=== PATIENT | female | born 1990 | race Caucasian/White ===

== ENCOUNTER → 2017-04-04 | Outpatient (CLI) | payer OTHER ==
[~2017-04-04] MED LIST: Ativan1 MG SL; BELPTAB PO; Bactrim Ds Tab1 EACH PO; CEPH500 PO; CODACEE120 PO; CYCL10 PO; DULO30 PO; ESCI10 PO; FLUO20 PO; HYDPAM50; IBUP800 PO; Keflex500 MG PO; LAMO25 PO; LORA1 PO; Levaquin500 MG PO; MULVITMINE PO; ONDA4 PO; PENVK500 PO; Percocet 5-3251 EACH PO; SERT25; SUBOXONE 12 MG1 EACH; TRAZ50 PO; Verotin-Gr Cap1 EACH PO
== END ==
LOC: LAB 17:11
DX: Z34.00 Encounter for supervision of normal first pregnancy, unspecified trimester (principal)
CPT/HCPCS: 87081; 87653

== ENCOUNTER 2017-04-12 11:20 | Inpatient (IN) | payer OTHER ==
[~2017-04-12] VITALS: Ht 157.5 cm; Wt 114.0 kg
[~2017-04-12 11:20] MED LIST changes: -IBUP800 PO; -Percocet 5-3251 EACH PO
[2017-04-12 12:13] LABS: BASOPHILS ABSOLUTE AUTO 0.01 K/mm3 (0.00-0.23); BASOPHILS PERCENT AUTO 0 % (0-2); EOSINOPHILS ABSOLUTE AUTO 0.07 K/mm3 (0.00-0.68); EOSINOPHILS PERCENT AUTO 1 % (0-6); Hematocrit 40.4 % (33.0-51.0); Hemoglobin 13.9 g/dL (11.5-16.0); IMMATURE GRAN ABSOLUTE AUTO 0.04 K/mm3 (0.00-0.10); IMMATURE GRAN PERCENT AUTO 0 % (0-1); LYMPHOCYTES ABSOLUTE AUTO 2.57 K/mm3 (0.84-5.20); LYMPHOCYTES PERCENT AUTO 26 % (21-46); MONOCYTES PERCENT AUTO 7 % (4-13); Mean Corpuscular HGB 32.6 pg (26.0-34.0); Mean Corpuscular HGB Conc 34.4 g/dL (31.5-36.5); Mean Corpuscular Volume 95 fL (80-100); Mean Platelet Volume 10.1 fL (9.1-12.4); NEUTROPHILS ABSOLUTE AUTO 6.54 K/mm3 (1.96-9.15); NEUTROPHILS PERCENT AUTO 66 % (41-73); Platelet Count 264 K/mm3 (150-400); RDW Coefficient Variation 12.7 % (11.7-14.2); RDW Standard Deviation 43.5 fL (35.1-46.3); Red Blood Cell Count 4.26 M/mm3 (3.80-5.20); White Blood Cell Count 9.93 K/mm3 (4.00-11.30)
[2017-04-13 05:53] LABS: Hematocrit 34.8 % (33.0-51.0); Hemoglobin 11.7 g/dL (11.5-16.0); Mean Corpuscular HGB 32.5 pg (26.0-34.0); Mean Corpuscular HGB Conc 33.6 g/dL (31.5-36.5); Mean Corpuscular Volume 97 fL (80-100); Mean Platelet Volume 9.9 fL (9.1-12.4); Platelet Count 218 K/mm3 (150-400); RDW Coefficient Variation 12.8 % (11.7-14.2); RDW Standard Deviation 45.1 fL (35.1-46.3); White Blood Cell Count 11.16 K/mm3 (4.00-11.30)
[2017-04-15] MEDS ORDERED: IBUP800 PO (13:34)
[2017-04-15] MEDS ORDERED: Percocet 5-3251 EACH PO (13:35)
== END 2017-04-15 18:54 | disposition home or self-care (01) | DRG 765 ==
LOC: OBS 11:20 → BC 11:24
PROVIDERS: Obstetrics & Gynecology
PROC: 10D00Z1 Extraction of Products of Conception, Low, Open Approach (ICD-10-PCS; principal; 2017-04-12)
PROC: 3E0234Z Introduction of Serum, Toxoid and Vaccine into Muscle, Percutaneous Approach (ICD-10-PCS; 2017-04-14)
DX: O34.211 Maternal care for low transverse scar from previous cesarean delivery (principal); Z68.42 Body mass index [BMI] 45.0-49.9, adult; E66.01 Morbid (severe) obesity due to excess calories; O99.214 Obesity complicating childbirth; O99.344 Other mental disorders complicating childbirth; F41.9 Anxiety disorder, unspecified; Z23 Encounter for immunization; Z37.0 Single live birth; Z3A.37 37 weeks gestation of pregnancy; Z88.0 Allergy status to penicillin; Z79.899 Other long term (current) drug therapy
CPT/HCPCS: 36415; 81003; 85025; 85027; 86850; 86900; 86901; J0690; J1885; J2590; J2765; J3010; J7120; Q2038

== ENCOUNTER → 2017-06-27 | Outpatient (CLI) | payer OTHER ==
[~2017-06-27] MED LIST changes: +IBUP800 PO; +Percocet 5-3251 EACH PO
== END ==
LOC: LAB SRC 11:39 → LAB SHORT 11:39
DX: F12.20 Cannabis dependence, uncomplicated (principal)
CPT/HCPCS: G0480

== ENCOUNTER 2018-04-20 20:48 | Emergency (ER) | payer OTHER ==
[~2018-04-20] VITALS: Ht 157.5 cm; Wt 95.2 kg
[2018-04-20] MEDS ORDERED: SERT50 PO (21:16)
== END 2018-04-21 00:06 | disposition left against medical advice (07) ==
LOC: ER 20:48
DX: Z53.21 Procedure and treatment not carried out due to patient leaving prior to being seen by health care provider (principal)

== ENCOUNTER 2020-06-28 12:37 | Emergency (ER) | payer OTHER ==
[~2020-06-28] VITALS: Ht 157.5 cm; Wt 99.8 kg
[~2020-06-28 12:37] MED LIST changes: +SERT50 PO
[2020-06-28 13:43] LABS: BASOPHILS ABSOLUTE AUTO 0.03 K/mm3 (0.00-0.23); BASOPHILS PERCENT AUTO 0 % (0-2); EOSINOPHILS ABSOLUTE AUTO 0.01 K/mm3 (0.00-0.68); EOSINOPHILS PERCENT AUTO 0 % (0-6); Hematocrit 39.8 % (33.0-51.0); Hemoglobin 12.9 g/dL (11.5-16.0); IMMATURE GRAN ABSOLUTE AUTO 0.03 K/mm3 (0.00-0.10); IMMATURE GRAN PERCENT AUTO 0 % (0-1); LYMPHOCYTES ABSOLUTE AUTO 0.65 K/mm3 (0.84-5.20); LYMPHOCYTES PERCENT AUTO 8 % (21-46); MONOCYTES ABSOLUTE AUTO 0.41 K/mm3 (0.16-1.47); MONOCYTES PERCENT AUTO 5 % (4-13); Mean Corpuscular HGB 29.7 pg (26.0-34.0); Mean Corpuscular HGB Conc 32.4 g/dL (31.5-36.5); Mean Corpuscular Volume 92 fL (80-100); Mean Platelet Volume 9.3 fL (9.1-12.4); NEUTROPHILS ABSOLUTE AUTO 6.59 K/mm3 (1.96-9.15); NEUTROPHILS PERCENT AUTO 85 % (41-73); Platelet Count 247 K/mm3 (150-400); RDW Coefficient Variation 13.9 % (11.7-14.2); RDW Standard Deviation 46.9 fL (35.1-46.3); Red Blood Cell Count 4.35 M/mm3 (3.80-5.20); White Blood Cell Count 7.72 K/mm3 (4.00-11.30)
[2020-06-28 13:56] LABS: Alanine Aminotransfer (ALT/SGP 62 U/L (12-78); Albumin, Blood 3.7 g/dL (3.4-5.0); Albumin/Globulin Ratio 0.9 (0.8-1.8); Alk Phos 124 U/L (50-136); Anion Gap 6 mmol/L (6-16); Aspartate Aminotrans (AST/SGOT 66 U/L (12-37); Bilirubin, Total 0.9 mg/dL (0.1-1.0); Blood Urea Nitrogen 6 mg/dL (8-24); Bun/Creatinine Ratio 10.5 (12.0-20.0); CO2, Blood 25 mmol/L (21-32); Calcium, Blood 8.5 mg/dL (8.5-10.1); Chloride, Blood 105 mmol/L (98-108); Creatinine, Blood 0.57 mg/dL (0.40-1.00); Globulin, Blood 4.2 g/dL (2.2-4.0); Glomerular Filtration Rate >60 (60-); Glucose, Blood 122 mg/dL (70-99); Potassium, Blood 3.4 mmol/L (3.5-5.5); Sodium, Blood 136 mmol/L (136-145); Total Protein, Blood 7.9 g/dL (6.4-8.2)
[2020-06-28] MEDS ORDERED: GABA100 PO ×2 (15:33→15:34)
[2020-06-28] MEDS ORDERED: GABA300 PO (15:33)
[2020-06-28] MEDS ORDERED: CEPH500 PO ×2 (17:28→17:30)
== END 2020-06-28 17:30 | disposition home or self-care (01) ==
LOC: ER 12:37
PROVIDERS: Physician Assistant
DX: L03.114 Cellulitis of left upper limb (principal); I10 Essential (primary) hypertension; F17.210 Nicotine dependence, cigarettes, uncomplicated; Z88.0 Allergy status to penicillin; Z79.899 Other long term (current) drug therapy
CPT/HCPCS: 36415; 73130; 80053; 83605; 85025; 96374; 96375; 99283-25; J0690; J1170; J2405

== ENCOUNTER 2020-07-03 15:34 | Inpatient (IN) | payer OTHER ==
[~2020-07-03] VITALS: Ht 157.5 cm; Wt 121.0 kg
[~2020-07-03 15:34] MED LIST changes: +GABA100 PO; +GABA300 PO
[2020-07-03 16:24] LABS: BASOPHILS ABSOLUTE AUTO 0.05 K/mm3 (0.00-0.23); BASOPHILS PERCENT AUTO 1 % (0-2); EOSINOPHILS ABSOLUTE AUTO 0.21 K/mm3 (0.00-0.68); EOSINOPHILS PERCENT AUTO 2 % (0-6); Hematocrit 37.1 % (33.0-51.0); Hemoglobin 12.1 g/dL (11.5-16.0); IMMATURE GRAN ABSOLUTE AUTO 0.15 K/mm3 (0.00-0.10); IMMATURE GRAN PERCENT AUTO 1 % (0-1); LYMPHOCYTES ABSOLUTE AUTO 2.95 K/mm3 (0.84-5.20); LYMPHOCYTES PERCENT AUTO 27 % (21-46); MONOCYTES ABSOLUTE AUTO 0.84 K/mm3 (0.16-1.47); MONOCYTES PERCENT AUTO 8 % (4-13); Mean Corpuscular HGB 29.4 pg (26.0-34.0); Mean Corpuscular HGB Conc 32.6 g/dL (31.5-36.5); Mean Corpuscular Volume 90 fL (80-100); NEUTROPHILS ABSOLUTE AUTO 6.69 K/mm3 (1.96-9.15); NEUTROPHILS PERCENT AUTO 61 % (41-73); Platelet Count 311 K/mm3 (150-400); RDW Coefficient Variation 14.1 % (11.7-14.2); RDW Standard Deviation 46.9 fL (35.1-46.3); Red Blood Cell Count 4.12 M/mm3 (3.80-5.20); White Blood Cell Count 10.89 K/mm3 (4.00-11.30)
[2020-07-03 16:44] LABS: Alanine Aminotransfer (ALT/SGP 40 U/L (12-78); Albumin, Blood 3.1 g/dL (3.4-5.0); Albumin/Globulin Ratio 0.7 (0.8-1.8); Alk Phos 129 U/L (50-136); Anion Gap 3 mmol/L (6-16); Aspartate Aminotrans (AST/SGOT 39 U/L (12-37); Bilirubin, Total 0.4 mg/dL (0.1-1.0); Blood Urea Nitrogen 8 mg/dL (8-24); Bun/Creatinine Ratio 15.7 (12.0-20.0); CO2, Blood 28 mmol/L (21-32); Calcium, Blood 8.5 mg/dL (8.5-10.1); Chloride, Blood 106 mmol/L (98-108); Creatinine, Blood 0.51 mg/dL (0.40-1.00); Globulin, Blood 4.7 g/dL (2.2-4.0); Glomerular Filtration Rate >60 (60-); Glucose, Blood 101 mg/dL (70-99); Potassium, Blood 3.9 mmol/L (3.5-5.5); Sodium, Blood 137 mmol/L (136-145); Total Protein, Blood 7.8 g/dL (6.4-8.2)
--- NOTE | 2020-07-03 19:24 | NUR ---
PT ARRIVED TO PCU 16 VIA BED AND ABLE TO STAND AND TRANSFER. ON 2L O2 VIA NASAL CANNULA SATING AT 95%. CONTINUOUS PULSE OX IN PLACE. SOB WITH STAND BY ASSIST TO BEDSIDE COMMODE. URINE CLEAR AND YELLOW. TELE SHOWING SINUS. DENIES CHEST PAIN/PRESSURE. COMPLAINS OF ABDOMINAL PAIN TO LEFT SIDE. MEDICATED PRIOR TO ARRIVAL PER EMAR WITH SOME RELIEF. LEFT HAND WOUND DRESSED, UNABLE TO VISUALIZE WOUND. VITAL SIGNS STABLE. CT OF CHEST COMPLETED. NORMAL SALINE AT 100 ML/HR AND VANCOMYCIN INFUSING. RIGHT UPPER ARM POWER GLIDE. LEFT AC IV. CALL LIGHT IN REACH. REPORTED OFF TO ONCOMING RN.
[2020-07-03] MEDS ORDERED: HYDHCL25 PO (19:50)
[2020-07-03] MEDS ORDERED: ZOLOFT100 M5 PO (19:51)
[2020-07-03] MEDS ORDERED: GABA100 PO (19:53)
[2020-07-03] MEDS ORDERED: NEURONTIN300 MG PO (19:54)
[2020-07-03] MEDS ORDERED: Phenergan25 M1 PO (19:55)
[2020-07-03] MEDS ORDERED: Hydroxyzine HCl50 MG PO (19:55)
[2020-07-03] MEDS ORDERED: TRAZ50 PO (19:56)
[2020-07-03] MEDS ORDERED: CLON.1 PO (19:56)
[2020-07-03] MEDS ORDERED: GABA300 PO ×2 (20:30→20:31)
--- NOTE | 2020-07-03 23:29 | NUR ---
30 YO ADMITTED FOR SEPTIC EMBOLI, PNEUMONIA, INFECTED HAND WOUND. A&O X4. ABLE TO MAKE NEEDS KNOWN. SATTING 90-95% ON 1-2l O2 VIA NC. BECOMES SOB WHEN STANDING AND AMBULATING TO BSC, SBA. CONNECTED TO TELE, SINUS 80'S - 100'S. HR INCREASES UPON EXERTION. PT REPORTING PAIN TO LEFT FLANK, AND LEFT ABD. RATING 7/10, TREATED WITH PRN PAIN MEDICATION AND PT ABLE TO SLEEP. IV IN LEFT AC. POWERGLIDE TO RIGHT ARM, INFUSING WITH NORMAL SALINE. WOUND ON LEFT HAND WITH MODERATE YELLOW DRAINAGE, CLEANSED WITH WOUND SPRAY, COVERED WITH NON-ADHERENT DRESSING AND WRAPPED WITH KERLEX. REDNESS AND INDURATION EXTENDING FROM LEFT HAND TO LEFT ELBOW, WARM TO TOUCH. AREA WAS MARKED WITH SKIN MARKER AND PHOTOS TAKEN FOR PT CHART. REDNESS NOTED TO PT'S BILAT INNER THIGHS. PT REPORTS MILD ITCHING AND STATES SHE NOTICED TODAY IN THE ER. AREA IS CLEANSED WITH WIPES, LOTION APPLIED. PHOTOS TAKEN FOR PT CHART, AREA MARKED WITH SKIN MARKER. PT SLEEPING AT 23:00, CALL LIGHT WITHIN REACH. WILL CONTINUE TO MONITOR.
[2020-07-04 04:05] LABS: BASOPHILS ABSOLUTE AUTO 0.04 K/mm3 (0.00-0.23); BASOPHILS PERCENT AUTO 0 % (0-2); EOSINOPHILS ABSOLUTE AUTO 0.17 K/mm3 (0.00-0.68); EOSINOPHILS PERCENT AUTO 2 % (0-6); Hematocrit 33.6 % (33.0-51.0); Hemoglobin 10.8 g/dL (11.5-16.0); IMMATURE GRAN ABSOLUTE AUTO 0.12 K/mm3 (0.00-0.10); IMMATURE GRAN PERCENT AUTO 1 % (0-1); LYMPHOCYTES ABSOLUTE AUTO 3.03 K/mm3 (0.84-5.20); LYMPHOCYTES PERCENT AUTO 30 % (21-46); MONOCYTES ABSOLUTE AUTO 0.69 K/mm3 (0.16-1.47); MONOCYTES PERCENT AUTO 7 % (4-13); Mean Corpuscular HGB Conc 32.1 g/dL (31.5-36.5); Mean Corpuscular Volume 90 fL (80-100); NEUTROPHILS ABSOLUTE AUTO 5.96 K/mm3 (1.96-9.15); NEUTROPHILS PERCENT AUTO 60 % (41-73); Platelet Count 303 K/mm3 (150-400); RDW Coefficient Variation 14.2 % (11.7-14.2); RDW Standard Deviation 46.2 fL (35.1-46.3); Red Blood Cell Count 3.73 M/mm3 (3.80-5.20); White Blood Cell Count 10.01 K/mm3 (4.00-11.30)
[2020-07-04 04:27] LABS: Alanine Aminotransfer (ALT/SGP 34 U/L (12-78); Albumin, Blood 2.8 g/dL (3.4-5.0); Albumin/Globulin Ratio 0.7 (0.8-1.8); Alk Phos 106 U/L (50-136); Anion Gap 3 mmol/L (6-16); Aspartate Aminotrans (AST/SGOT 32 U/L (12-37); Bilirubin, Total 0.5 mg/dL (0.1-1.0); Blood Urea Nitrogen 6 mg/dL (8-24); CO2, Blood 27 mmol/L (21-32); Calcium, Blood 7.9 mg/dL (8.5-10.1); Chloride, Blood 107 mmol/L (98-108); Creatinine, Blood 0.55 mg/dL (0.40-1.00); Globulin, Blood 4.2 g/dL (2.2-4.0); Glomerular Filtration Rate >60 (60-); Glucose, Blood 104 mg/dL (70-99); Potassium, Blood 3.9 mmol/L (3.5-5.5); Sodium, Blood 137 mmol/L (136-145)
--- NOTE | 2020-07-04 06:16 | NUR ---
SHIFT SUMMARY PT EXHIBITED SYMPTOMS OF OPIOID WITHDRAWAL- NAUSEA, FLUSHED SKIN, ITCHING SKIN, C/O FEELING FEVERISH. VSS DURING SHIFT. PT DESATS TO 86% O2 WHEN SHE REMOVED HER NC OR FELL ASLEEP AND THE CANNULA FELL OUT. ON ROOM AIR 1.5 L, SHE REMAINS AT >94 % O2. PT STATED, "I KNOW I'M WITHDRAWING..." PT C/O LEFT SIDE ABD AND FLANK PAIN, AT TIMES RESTLESS - WHIMPERING, MOVING FREQUENTLY IN BED. STATES THE PAIN BEGAN AFTER HER FALL, BUT STATES IT IS NOT RESIDUAL FROM THE FALL. PT REPORTS 2-3 DAYS AGO, SHE "FELL THROUGH THE TOP STEP" AT HER BOYFRIEND'S HOUSE. AT TIMES, PT WOULD REQUEST PAIN MEDICATION. WHEN RN WOULD RETURN TO ROOM WITH REQUESTED PAIN MEDICATION, PT WOULD BE SLEEPING. PT PAIN TREATED WITH PRESCRIBED DILUADID IV AND PO, SEE MAR. WOUND CARE COMPLETED: LEFT HAND CLEANSED WITH WOUND SPRAY, APPLIED NON-ADHERENT DRESSING AND WRAPPED WITH KERLEX PER WOUNDCARE INSTRUCTIONS. ADMISSION COMPLETE. FLUIDS INFUSING PER ORDER, POWERGLIDE IN GABBI. SBA FOR ASSISTANCE TO COMMODE. ATTENDS IN PLACE FOR INCONTINENCE. TELE READS SINUS IN THE 'S. WILL CONTINUE TO MONITOR.
--- NOTE | 2020-07-04 14:05 | NUR ---
Echocardiogram completed.
[2020-07-04 18:58] LABS: Vancomycin, Trough 8.9 ug/mL (5.0-10.0)
--- NOTE | 2020-07-04 19:24 | NUR ---
SHIFT SUMMARY: PATIENT CONTINUES TO SPO2 >92% ON RA, IS A/O X 4, IS SLIGHTLY ANXIOUS, AND WAS GIVEN ORAL ANTIANXIETY MEDS WHICH DECREASED ANXIETY ALONG WITH RELAXATION, AND BREATHING TECHNIQUES. PAIN HAS BEEN ISOLATED TO HER LUQ PAIN. ORAL DILAUDED MEDICATION PER EMAR MAINTAINED PATIENTS PAIN LEVELS. PATIENT DENIES ANY CHEST PAIN, SINUS RHYTHM VIA MONITOR. PATIENT IS GAINING SOME STRENGTH WITH AMBULATION SHE IS STEADIER WHILE AMBULATING TO BSC. USES CALL LIGHT APPROPRIATELY, REPORT GIVEN TO ONCOMING HOOP EXPANDER RN KEISHA HANKINS.
[2020-07-05 04:36] LABS: Hematocrit 32.8 % (33.0-51.0); Hemoglobin 10.8 g/dL (11.5-16.0); Mean Corpuscular HGB 29.1 pg (26.0-34.0); Mean Corpuscular HGB Conc 32.9 g/dL (31.5-36.5); Mean Corpuscular Volume 88 fL (80-100); Mean Platelet Volume 9.3 fL (9.1-12.4); Platelet Count 344 K/mm3 (150-400); RDW Coefficient Variation 13.8 % (11.7-14.2); RDW Standard Deviation 44.9 fL (35.1-46.3); Red Blood Cell Count 3.71 M/mm3 (3.80-5.20); White Blood Cell Count 10.46 K/mm3 (4.00-11.30)
[2020-07-05 04:47] LABS: Alanine Aminotransfer (ALT/SGP 28 U/L (12-78); Albumin, Blood 2.7 g/dL (3.4-5.0); Albumin/Globulin Ratio 0.6 (0.8-1.8); Alk Phos 101 U/L (50-136); Anion Gap 5 mmol/L (6-16); Aspartate Aminotrans (AST/SGOT 24 U/L (12-37); Bilirubin, Total 0.5 mg/dL (0.1-1.0); Blood Urea Nitrogen 6 mg/dL (8-24); CO2, Blood 24 mmol/L (21-32); Calcium, Blood 7.9 mg/dL (8.5-10.1); Chloride, Blood 109 mmol/L (98-108); Creatinine, Blood 0.55 mg/dL (0.40-1.00); Globulin, Blood 4.5 g/dL (2.2-4.0); Glomerular Filtration Rate >60 (60-); Glucose, Blood 108 mg/dL (70-99); Magnesium, Blood 2.2 mg/dL (1.6-2.4); Potassium, Blood 3.7 mmol/L (3.5-5.5); Sodium, Blood 138 mmol/L (136-145); Total Protein, Blood 7.2 g/dL (6.4-8.2)
--- NOTE | 2020-07-05 06:32 | NUR ---
PATIENT REPORTS HER PAIN BETTER CONTROLLED WITH IV DILAUDID. VSS. SB ON TELE AT TIMES; SR MOST OF NIGHT. VSS. NO OTHER ACUTE CHANGES.
--- NOTE | 2020-07-05 18:35 | NUR ---
SHIFT SUMMARY: PT MAINTAINED A&OX4 T/OUT SHIFT, MAINTAINING O2 SATS >93% ON RA, SR ON MONITOR. EARLY THIS MORNING PT STATING SHE WANTS TO GO HOME, SAYS "I MISS MY SON, I'VE BEEN HERE SINCE SUNDAY AND I'M JUST OVER IT". PT ENCOURAGED TO WAIT FOR EVAL BY PROVIDER, PT REMINDED OF RISK OF LEAVING AMA, EDUCATION PROVIDED RE: CURRENT ILLNESS AND NEED TO BE IN HOSPITAL FOR TREATMENT, PT V/U AND AGREES TO WAIT FOR PROVIDER, EVENTUALLY AGREES TO STAY IN HOSPITAL. PT MEDICATED OFTEN WITH PRN MEDICATIONS FOR PAIN AND ANXIETY. PT AMBULATES FREQUENTLY TO RESTROOM W/OUT DIFFICULTY, USING CALL LIGHT APPROPRIATELY TO NOTIFY STAFF. ULTRASOUND AT BEDSIDE FOR IMAGING OF L HAND. L HAND WOUND CULTURE OBTAINED AND SENT TO LAB. PT IS AWARE OF NEED FOR SPUTUM SAMPLE, DENIES PRODUCTIVE COUGH AT THIS TIME. WILL CONTINUE TO MONITOR AND TREAT ACCORDINGLY UNTIL CHANGE OF SHIFT.
[2020-07-05 20:09] LABS: Vancomycin, Trough 14.7 ug/mL (5.0-10.0)
--- NOTE | 2020-07-06 00:22 | NUR ---
PATIENT ALERT AND ORIENTED X4. SBA TO THE BATHROOM. WOUND ON LEFT HAND CLEANED AND NON-ADHESIVE DRESSING PLACED OVER WOUND. PATIENT REPORTING 6/10 PAIN IN LEFT HAND AND LUQ, MEDICATED PER EMAR. 02 SATS >95% ON RA. VSS, NO ACUTE CHANGES. CALL LIGHT IN REACH. REPORT GIVEN TO ROSA HANKINS WHO ASSUMED CARE OF PATIENT AT APPROX 2300.
--- NOTE | 2020-07-06 00:52 | NUR ---
ASSUMED CARE AT 2300 FROM [facility]. REPORT RECEIVED AND PATIENT SLEEPING COMFORTABLY IN BED. CALL LIGHT WITHIN REACH. ABX ADMINISTERED VIA IV. WILL CONTINUE TO MONITOR PATIENT.
--- NOTE | 2020-07-06 04:13 | NUR ---
SHIFT SUMMARY NO ACUTE CHANGES OVERNIGHT. PT STS SHE SLEPT WELL TONIGHT. FEELING WELL RESTED COMPARED A NIGHT AGO. SHE REPORTS PAIN BUT IT IS WELL-TOLERATED. PAIN MANAGED WITH 2MG DILAUDID. SHE ALSO MENTIONED THAT HER PAIN IS BETTER THAN TODAY. SHE ALSO HAD SOME SNACKS THIS MORNING AT 0130. TOLERATED IT WELL. DENIES NAUSEA AND VOMITING. VOIDING ADEQUATELY WITHOUT ANY DIFFICULTY/ISSUES. AMBULATING WITH 1 MINIMAL SBA. VSS. ABX ADMINISTERED. CALL LIGHT WITHIN REACH. WILL CONTINUE TO MONTIOR PATIENT AND WILL PROVID REPORT TO ONCOMING NURSE.
[2020-07-06 10:32] LABS: BASOPHILS ABSOLUTE AUTO 0.06 K/mm3 (0.00-0.23); BASOPHILS PERCENT AUTO 1 % (0-2); EOSINOPHILS ABSOLUTE AUTO 0.19 K/mm3 (0.00-0.68); EOSINOPHILS PERCENT AUTO 2 % (0-6); Hematocrit 38.3 % (33.0-51.0); Hemoglobin 12.2 g/dL (11.5-16.0); IMMATURE GRAN ABSOLUTE AUTO 0.43 K/mm3 (0.00-0.10); IMMATURE GRAN PERCENT AUTO 4 % (0-1); LYMPHOCYTES ABSOLUTE AUTO 2.58 K/mm3 (0.84-5.20); LYMPHOCYTES PERCENT AUTO 25 % (21-46); MONOCYTES ABSOLUTE AUTO 0.86 K/mm3 (0.16-1.47); MONOCYTES PERCENT AUTO 8 % (4-13); Mean Corpuscular HGB 28.5 pg (26.0-34.0); Mean Corpuscular HGB Conc 31.9 g/dL (31.5-36.5); Mean Corpuscular Volume 90 fL (80-100); Mean Platelet Volume 9.1 fL (9.1-12.4); NEUTROPHILS ABSOLUTE AUTO 6.14 K/mm3 (1.96-9.15); NEUTROPHILS PERCENT AUTO 60 % (41-73); Platelet Count 416 K/mm3 (150-400); RDW Coefficient Variation 14.3 % (11.7-14.2); RDW Standard Deviation 46.3 fL (35.1-46.3); Red Blood Cell Count 4.28 M/mm3 (3.80-5.20); White Blood Cell Count 10.26 K/mm3 (4.00-11.30)
[2020-07-06 10:47] LABS: Alanine Aminotransfer (ALT/SGP 32 U/L (12-78); Albumin/Globulin Ratio 0.6 (0.8-1.8); Alk Phos 121 U/L (50-136); Anion Gap 5 mmol/L (6-16); Aspartate Aminotrans (AST/SGOT 30 U/L (12-37); Bilirubin, Total 0.4 mg/dL (0.1-1.0); Blood Urea Nitrogen 5 mg/dL (8-24); Bun/Creatinine Ratio 8.6 (12.0-20.0); CO2, Blood 25 mmol/L (21-32); Calcium, Blood 8.5 mg/dL (8.5-10.1); Chloride, Blood 109 mmol/L (98-108); Creatinine, Blood 0.58 mg/dL (0.40-1.00); Globulin, Blood 5.3 g/dL (2.2-4.0); Glomerular Filtration Rate >60 (60-); Glucose, Blood 94 mg/dL (70-99); Potassium, Blood 3.9 mmol/L (3.5-5.5); Sodium, Blood 139 mmol/L (136-145); Total Protein, Blood 8.3 g/dL (6.4-8.2)
[2020-07-06 10:49] LABS: SARS-Cov-2 (COVID-19) PCR, MMC NEGATIVE (NEGATIVE)
--- NOTE | 2020-07-06 12:00 | NUR ---
AM NOTE PT ALERT AND ORIENTED X 4. UPON ENTERING ROOM PT WAS EXPERIENCING ANXIETY AND STATED SHE WANTED TO GO HOME. PT VOICED CONCERNS ABOUT SON AND DX. SHE IS OPEN ABOUT IV DRUG USE AND HAS BEEN EDUCATED ACCORDINGLY. THIS STUDENT TREATED ANXIETY PER EMAR AND PT APPEARED MORE RELAXED. VS AT 0954 BP 141/89, HR 96, RR 16, SP02 96 RA. PT HAS COMPLAINED OF PAIN AND BEEN TREATED PER EMAR. PT IS SBA TO BATHROOM BUT AMBULATES ON OWN. WILL CONTINUE TO MONITOR T/O SHIFT. CALL LIGHT IN REACH, BED IN LOW, BED ALARM ON.
--- NOTE | 2020-07-06 18:34 | NUR ---
SHIFT SUMMARY PT ALERT AND ORIENTED X 4. SHE IS PLEASANT AND COOPERATIVE W/ CARE. SHE DISPLAYED ANXIETY DURING SHIFT BUT ONCE TREATED PER EMAR APPEARED MORE RELAXED. VS AT 1659 ARE FOLLOWS; BP 131/85, HR 103, RR 12, SP02 96 ON RA. PT COMPLAINED OF LEFT SIDE PAIN RANGING FROM 5-9 T/O SHIFT; PAIN WAS TREATED PER EMAR. LEFT PERIPH IV IS PATENT AND INFUSING ANTIBIOTICS PER EMAR. PT REPORTED WOUND ON LEFT HAND IS IMPROVING. PT DENIED CHEST PAIN. NAUSEA/VOMITTING T/O SHIFT. NO ACUTE CHANGES NOTED. WILL CONTINUE TO MONITOR FOR REMAINDER OF SHIFT. PT NOW SHOWERING SBA.
--- NOTE | 2020-07-06 18:48 | NUR ---
THIS RN HAS REVIEWED THE EPIDEMIOLOGY INVESTIGATOR DOCUMENTATION AND AM IN AGREEMENT. NO OTHER ACUTE CHANGES NOTED. PT HAS BEEN PAINFUL T/O SHIFT, REQUESTING PAIN MEDICATIONS. EPISODE OF ANXIETY THIS AM, MEDICATED PER EMAR, PT SLEPT AFTER ADMINISTRATION OF MEDICATIONS. VSS. WILL CONTINUE TO MONTIOR UNTIL REPORT GIVEN TO ONCOMING RN.
[2020-07-06 20:20] LABS: Vancomycin, Trough 13.4 ug/mL (5.0-10.0)
--- NOTE | 2020-07-07 01:32 | NUR ---
CARE ASSUMPTION PT IS AO X4. PT IS TEARFUL, ANXIOUS, COOPERATIVE, AND CALM. PT RECEIVED MEDICATION PER EMAR FOR ANXIETY, AND THIS PROVIED HER WITH RELIEF. PT VSS. SPO2 >90% ON RA. TELE SR 70-80S. PT HAD NEW DRESSING APPLIED TO LEFT HAND WOUND AFTER. PT REPORTS PAIN IN HER LEFT HAND. PT RECEIVED PAIN MED PER EMAR AND STATES THAT THIS PROVIED RELIEF. PT AMBULATES A STAND BY ASSIST TO THE BATHROOM. CALL LIGHT WITHIN IN REACH. WILL CONTINUE TO MONITOR AND PROVIDE CARE.
[2020-07-07 04:21] LABS: BASOPHILS ABSOLUTE AUTO 0.04 K/mm3 (0.00-0.23); BASOPHILS PERCENT AUTO 0 % (0-2); EOSINOPHILS ABSOLUTE AUTO 0.29 K/mm3 (0.00-0.68); EOSINOPHILS PERCENT AUTO 2 % (0-6); Hematocrit 34.2 % (33.0-51.0); Hemoglobin 11.1 g/dL (11.5-16.0); IMMATURE GRAN ABSOLUTE AUTO 0.32 K/mm3 (0.00-0.10); IMMATURE GRAN PERCENT AUTO 3 % (0-1); LYMPHOCYTES ABSOLUTE AUTO 3.76 K/mm3 (0.84-5.20); LYMPHOCYTES PERCENT AUTO 31 % (21-46); MONOCYTES ABSOLUTE AUTO 0.86 K/mm3 (0.16-1.47); MONOCYTES PERCENT AUTO 7 % (4-13); Mean Corpuscular HGB 28.5 pg (26.0-34.0); Mean Corpuscular HGB Conc 32.5 g/dL (31.5-36.5); Mean Corpuscular Volume 88 fL (80-100); Mean Platelet Volume 8.9 fL (9.1-12.4); NEUTROPHILS ABSOLUTE AUTO 6.75 K/mm3 (1.96-9.15); NEUTROPHILS PERCENT AUTO 56 % (41-73); Platelet Count 380 K/mm3 (150-400); RDW Coefficient Variation 14.2 % (11.7-14.2); RDW Standard Deviation 45.7 fL (35.1-46.3); Red Blood Cell Count 3.89 M/mm3 (3.80-5.20); White Blood Cell Count 12.02 K/mm3 (4.00-11.30)
[2020-07-07 04:42] LABS: Alanine Aminotransfer (ALT/SGP 33 U/L (12-78); Albumin, Blood 2.7 g/dL (3.4-5.0); Albumin/Globulin Ratio 0.6 (0.8-1.8); Alk Phos 107 U/L (50-136); Anion Gap 4 mmol/L (6-16); Aspartate Aminotrans (AST/SGOT 27 U/L (12-37); Bilirubin, Total 0.4 mg/dL (0.1-1.0); Blood Urea Nitrogen 5 mg/dL (8-24); Bun/Creatinine Ratio 9.2 (12.0-20.0); CO2, Blood 25 mmol/L (21-32); Calcium, Blood 8.3 mg/dL (8.5-10.1); Chloride, Blood 108 mmol/L (98-108); Creatinine, Blood 0.55 mg/dL (0.40-1.00); Globulin, Blood 4.5 g/dL (2.2-4.0); Glomerular Filtration Rate >60 (60-); Glucose, Blood 116 mg/dL (70-99); Potassium, Blood 3.6 mmol/L (3.5-5.5); Sodium, Blood 137 mmol/L (136-145); Total Protein, Blood 7.2 g/dL (6.4-8.2)
--- NOTE | 2020-07-07 06:13 | NUR ---
SHIFT SUMMARY PT AO X4. PT IS TEARFUL, ANXIOUS, CALM, AND COOPERATIVE. VSS. SPO2 >90% ON RA. TELE SR 70-80S. PT COMPLAINED OF LEFT FLANK, WRIST, AND BACK THROUGHOUT THIS STUDENT NURSE SHIFT. PT RATED PAIN RANGING FROM 3-9. PT RECEIVED PAIN MED PER ORDER FROM EMAR. CALL LIGHT WITHIN REACH. NO ACUTE CHANGES THIS SHIFT. WILL CONTINUE TO MONITOR AND PROVIDE CARE UNTIL HAND OFF WITH DAY SHIFT.
[2020-07-07 08:11] LABS: HIV SCREEN 4TH GENERATION WRFX Non Reactive (Non Reactive)
--- NOTE | 2020-07-07 11:44 | NUR ---
AM NOTE \ PT ALERT AND ORIENTED X4. UPON ENTRY TO ROOM PT IN TEARS AND STATED SHE HAS ANXIETY. SHE REPORTED PAIN 07/22. PT HAD JUST RECIEVED ORAL MED PER EMAR. THIS STUDENT TREATED ANXIETY PER ORDERS AND CONTINUED TO MONITOR PAIN. VSS. ANTIBIOTICS INFUSING VIA LEFT PERIPH IV. LUNG SOUNDS CLEAR. PT DENIED CHEST PAIN/PRESSURE. PT IS SBA AND STEADY ON FEET. WILL CONTINUE TO MONITOR T/O SHIFT. CALL LIGHT IN REACH, BED IN LOW.
--- NOTE | 2020-07-07 14:44 | NUR ---
TRANSFER NOTE PT TRANSPORTED TO MEDICAL FLOOR APPROX. 1430. AGUSTINA HANKINS ASSUMED CARE. PT STABLE UPON TRANSFER W/ NO ACUTE CHANGES NOTED.
--- NOTE | 2020-07-07 14:56 | NUR ---
PT ARRIVED TO FLOOR AT 1425. AOX4 AND COOPERATIVE OF CARE. PT HAD CALL LIGHT WITHIN REACH. PT APPEARED CALM AND QUIET. WILL CONTINUE TO MONITOR.
--- NOTE | 2020-07-07 15:36 | NUR ---
THIS RN HAS REVIEWED THE VACUUM COOKER OPERATOR DOCUMENTATION AND AM IN AGREEMENT. DRESSING TO POWEGLIDE TO GABBI AND WOUND DRESSING TO L HAND CHANGED PRIOR TO TRANSFER TO MEDICAL UNIT.
--- NOTE | 2020-07-07 17:18 | NUR ---
PT AOX4 AND INDEPENDENT IN ROOM. PT REPORTED PAIN AND FEELING ANXIETY AND WAS TREATED PER EMAR. PT UP AND AMBULATING IN ROOM. PT CALLS APPROPROPRIATELY. NO DISTRESS NOTED AT THIS TIME WILL CONTINUE TO MONITOR.
--- NOTE | 2020-07-08 04:25 | NUR ---
SHIFT SUMMARY: VSS. TACHYCARDIC AT 106. CONT W/ CONSTANT L HAND PAIN. STATES DILAUDID HELPS. ATIVAN GIVEN Q4HRS WHILE AWAKE. DRSG CHANGED TO L HAND DUE TO GETTING WET DURING SHOWER. MOD AMT OF SEROUS DRAINAGE. WHITE SLOUGH ON WOUND BEDS. ERYTHEMA AROUND EACH OPEN AREA. L HAND W/ +1 SWELLING, PT STATES IT LOOKS TO BE IMPROVING. EXERTIONAL DYSPNEA WHEN UP AMBULATING TO THE BATHROOM. NO COUGHING, LSCTA W/ DIM BASES. PT TEARFUL WHILE TALKING TO HER SON AND SIG OTHER-HOPING TO GO HOME POSSIBLY TODAY. IV ABT INFUSED PER ORDERS. MAINTENANCE FLUIDS INFUSING. NO ACUTE OVERNIGHT EVENTS. WCTM.
[2020-07-08 05:37] LABS: Hematocrit 35.6 % (33.0-51.0); Hemoglobin 11.7 g/dL (11.5-16.0); Mean Corpuscular HGB 28.8 pg (26.0-34.0); Mean Corpuscular HGB Conc 32.9 g/dL (31.5-36.5); Mean Corpuscular Volume 88 fL (80-100); Mean Platelet Volume 8.8 fL (9.1-12.4); Platelet Count 389 K/mm3 (150-400); RDW Coefficient Variation 14.1 % (11.7-14.2); RDW Standard Deviation 44.5 fL (35.1-46.3); Red Blood Cell Count 4.06 M/mm3 (3.80-5.20); White Blood Cell Count 14.39 K/mm3 (4.00-11.30)
[2020-07-08 05:55] LABS: Anion Gap 6 mmol/L (6-16); Blood Urea Nitrogen 7 mg/dL (8-24); Bun/Creatinine Ratio 12.8 (12.0-20.0); CO2, Blood 24 mmol/L (21-32); Calcium, Blood 8.4 mg/dL (8.5-10.1); Chloride, Blood 109 mmol/L (98-108); Creatinine, Blood 0.55 mg/dL (0.40-1.00); Glomerular Filtration Rate >60 (60-); Glucose, Blood 95 mg/dL (70-99); Potassium, Blood 3.6 mmol/L (3.5-5.5); Sodium, Blood 139 mmol/L (136-145)
[2020-07-08 06:00] LABS: BAND PERCENT MAN 1 % (0-8); BASOPHILS PERCENT MAN 0 % (0-2); EOSINOPHILS ABSOLUTE MAN 0.14 K/mm3 (0.00-0.68); EOSINOPHILS PERCENT MAN 1 % (0-6); LYMPHOCYTES ABSOLUTE MAN 4.46 K/mm3 (0.84-5.20); LYMPHOCYTES PERCENT MAN 31 % (21-46); MONOCYTES ABSOLUTE MAN 0.86 K/mm3 (0.16-1.47); MONOCYTES PERCENT MAN 6 % (4-13); NEUTROPHILS ABSOLUTE MAN 8.92 K/mm3 (1.96-9.15); SEG NEUTROPHILS PERCENT MAN 61 % (41-73); TOTAL CELLS COUNTED 100
[2020-07-08] MEDS ORDERED: ACET500 PO (12:50)
[2020-07-08] MEDS ORDERED: ONDA4ODT MM (12:51)
[2020-07-08] MEDS ORDERED: NICO21TP TOP (12:51)
[2020-07-08] MEDS ORDERED: FAMO20 PO (12:51)
[2020-07-08] MEDS ORDERED: LINE600 PO (12:51)
[2020-07-08] MEDS ORDERED: VISBIOME 112.51 EACH PO (12:52)
--- NOTE | 2020-07-08 13:30 | NUR ---
Discharge Summary A/Ox4, tearful but cooperative with care. Up in room independently. C/O having diarrhea since last night, roughly 5 episodes per patient. However, patient denies having any more diarrhea and states to SALES ORDER ADMINISTRATOR after using the restroom "It's not diarrhea anymore." No stool sample collected. Patient eager to go home. Discharging to home, reviewed discharge paperwork with patient, no questions at this time. Medicated x 1 for L abdominal and L hand pain with good effect. Copy of dc paperwork given. Meds faxed. PG removed, WNL. Dressed independently. Personal belongings sent home. Escorted by SALES ORDER ADMINISTRATOR via w/c.
== END 2020-07-08 13:52 | disposition home or self-care (01) | DRG 871 ==
LOC: ER 15:34 → PCU 17:18 → MEDS 07-07 14:28
PROVIDERS: Emergency Medicine; Internal Medicine Infectious Disease; Nurse Practitioner Acute Care; ADMIT Family Medicine
DX: A41.02 Sepsis due to Methicillin resistant Staphylococcus aureus (principal); I26.90 Septic pulmonary embolism without acute cor pulmonale; J18.9 Pneumonia, unspecified organism; L03.114 Cellulitis of left upper limb; L02.512 Cutaneous abscess of left hand; E66.2 Morbid (severe) obesity with alveolar hypoventilation; Z68.42 Body mass index [BMI] 45.0-49.9, adult; F11.13 Opioid abuse with withdrawal; I10 Essential (primary) hypertension; Z20.822 Contact with and (suspected) exposure to COVID-19; R19.7 Diarrhea, unspecified; F15.10 Other stimulant abuse, uncomplicated; K59.00 Constipation, unspecified; F17.210 Nicotine dependence, cigarettes, uncomplicated; K76.0 Fatty (change of) liver, not elsewhere classified; B18.2 Chronic viral hepatitis C; F32.9 Major depressive disorder, single episode, unspecified; G47.00 Insomnia, unspecified; F41.9 Anxiety disorder, unspecified; S61.432A Puncture wound without foreign body of left hand, initial encounter; X58.XXXA Exposure to other specified factors, initial encounter; Z98.890 Other specified postprocedural states; Z88.0 Allergy status to penicillin
CPT/HCPCS: 71045; 71260; 74176; 76882; 80048; 80053; 80202; 83605; 83735; 83880; 84443; 84484; 85025; 85027; 85651; 86140; 87040; 87070; 87075; 87077; 87147; 87186; 87205; 87389; 93306; 94760; 96365; 96368; 99285-25; A9270; C1751; J0696; J1170; J1650; J2185; J2405; J3370; J7030; J7050; Q9967; U0004

== ENCOUNTER 2020-12-25 15:30 | Emergency (ER) | payer OTHER ==
[~2020-12-25] VITALS: Ht 157.5 cm; Wt 99.8 kg
[~2020-12-25 15:30] MED LIST changes: +ACET500 PO; +CLON.1 PO; +FAMO20 PO; +HYDHCL25 PO; +Hydroxyzine HCl50 MG PO; +LINE600 PO; +NEURONTIN300 MG PO; +NICO21TP TOP; +ONDA4ODT MM; +Phenergan25 M1 PO; +VISBIOME 112.51 EACH PO; +ZOLOFT100 M5 PO
[2020-12-25] MEDS ORDERED: NARCAN4 M1 (16:28)
== END 2020-12-25 17:34 | disposition home or self-care (01) ==
LOC: ER 15:30
DX: T40.2X1A Poisoning by other opioids, accidental (unintentional), initial encounter (principal); R11.0 Nausea; Z88.0 Allergy status to penicillin; Z79.899 Other long term (current) drug therapy; I10 Essential (primary) hypertension; F17.210 Nicotine dependence, cigarettes, uncomplicated
CPT/HCPCS: 99284; A9270

== ENCOUNTER 2024-05-02 12:22 | Emergency (ER) | payer OTHER ==
[~2024-05-02] VITALS: Ht 157.5 cm; Wt 104.3 kg
[~2024-05-02 12:22] MED LIST changes: +NARCAN4 M1
[2024-05-02 12:35] VITALS: BP 131/93
[2024-05-02] MEDS ORDERED: Methadone HCL 10 MG TAB PO ONE (13:25)
== END 2024-05-02 14:19 | disposition home or self-care (01) ==
LOC: ER 12:22
DX: F11.91 Opioid use, unspecified, in remission (principal); Z76.0 Encounter for issue of repeat prescription; I10 Essential (primary) hypertension; F32.A Depression, unspecified; G47.00 Insomnia, unspecified; F17.210 Nicotine dependence, cigarettes, uncomplicated; Z88.0 Allergy status to penicillin; Z79.899 Other long term (current) drug therapy
CPT/HCPCS: 99281; A9270

== ENCOUNTER 2024-05-16 15:44 | Emergency (ER) | payer OTHER ==
[~2024-05-16] VITALS: Ht 157.5 cm; Wt 99.8 kg
[2024-05-16] MEDS ORDERED: Methadone HCL 10 MG TAB PO ONE (16:15)
[2024-05-16 16:16] VITALS: BP 124/81
[2024-05-16 16:46] LABS: Source, Urine Clean Catch
[2024-05-16 16:49] LABS: Bilirubin, Urine Neg (Neg); Blood, Urine 2+ (Neg); Color, Urine Yellow (P-Yellow); Glucose Qualitative, Urine Neg (Neg); Ketones, Urine Neg (Neg); Leukocyte Esterase, Urine 3+ (Neg); Nitrite, Urine Neg (Neg); Protein, Urine 1+ (Neg); Urobilinogen, Urine 1+ (Normal)
[2024-05-16 16:54] LABS: Appearance, Urine Hazy (Clear)
[2024-05-16 16:56] LABS: White Blood Cells, Urine 25-50 /hpf (0-5)
[2024-05-16 16:57] LABS: Bacteria Mod /hpf; Squamous Epithelial Cells Few /hpf (Few); Trichomonas Few /hpf
[2024-05-16 17:10] LABS: BASOPHILS ABSOLUTE AUTO 0.02 K/mm3 (0.00-0.23); BASOPHILS PERCENT AUTO 0 % (0-2); EOSINOPHILS ABSOLUTE AUTO 0.14 K/mm3 (0.00-0.68); EOSINOPHILS PERCENT AUTO 2 % (0-6); Hematocrit 35.8 % (33.0-51.0); IMMATURE GRAN ABSOLUTE AUTO 0.01 K/mm3 (0.00-0.10); IMMATURE GRAN PERCENT AUTO 0 % (0-1); LYMPHOCYTES ABSOLUTE AUTO 2.66 K/mm3 (0.84-5.20); LYMPHOCYTES PERCENT AUTO 44 % (21-46); MONOCYTES ABSOLUTE AUTO 0.51 K/mm3 (0.16-1.47); MONOCYTES PERCENT AUTO 8 % (4-13); Mean Corpuscular HGB 30.3 pg (26.0-34.0); Mean Corpuscular HGB Conc 33.5 g/dL (31.5-36.5); Mean Corpuscular Volume 90 fL (80-100); Mean Platelet Volume 8.9 fL (9.1-12.4); NEUTROPHILS ABSOLUTE AUTO 2.74 K/mm3 (1.96-9.15); NEUTROPHILS PERCENT AUTO 45 % (41-73); Platelet Count 272 K/mm3 (150-400); RDW Coefficient Variation 12.6 % (11.7-14.2); RDW Standard Deviation 41.7 fL (35.1-46.3); Red Blood Cell Count 3.96 M/mm3 (3.80-5.20); White Blood Cell Count 6.08 K/mm3 (4.00-11.30)
[2024-05-16 17:37] LABS: Albumin, Blood 3.6 g/dL (3.4-5.0); Bilirubin, Total 0.6 mg/dL (0.1-1.0); Bun/Creatinine Ratio 21.7 (12.0-20.0); Calcium, Blood 9.1 mg/dL (8.5-10.1); Creatinine, Blood 0.55 mg/dL (0.40-1.00); Globulin, Blood 3.7 g/dL (2.2-4.0); Potassium, Blood 4.1 mmol/L (3.5-5.5); Total Protein, Blood 7.3 g/dL (6.4-8.2)
[2024-05-16] MEDS ORDERED: BACTRIM DS TAB1 EAC1 PO (17:38)
== END 2024-05-16 17:44 | disposition home or self-care (01) ==
LOC: ER 15:44
PROVIDERS: Physician Assistant
DX: N12 Tubulo-interstitial nephritis, not specified as acute or chronic (principal); Z76.0 Encounter for issue of repeat prescription; G47.00 Insomnia, unspecified; F17.210 Nicotine dependence, cigarettes, uncomplicated; Z79.899 Other long term (current) drug therapy; Z88.0 Allergy status to penicillin
CPT/HCPCS: 80053; 81001; 85025; 87086; 99283; A9270

== ENCOUNTER 2024-06-18 14:47 | Emergency (ER) | payer OTHER ==
[~2024-06-18] VITALS: Ht 157.5 cm; Wt 99.8 kg
[~2024-06-18 14:47] MED LIST changes: +BACTRIM DS TAB1 EAC1 PO
[2024-06-18 16:04] LABS: BASOPHILS ABSOLUTE AUTO 0.02 K/mm3 (0.00-0.23); BASOPHILS PERCENT AUTO 0 % (0-2); EOSINOPHILS ABSOLUTE AUTO 0.14 K/mm3 (0.00-0.68); EOSINOPHILS PERCENT AUTO 2 % (0-6); Hematocrit 37.9 % (33.0-51.0); Hemoglobin 12.6 g/dL (11.5-16.0); IMMATURE GRAN ABSOLUTE AUTO 0.02 K/mm3 (0.00-0.10); IMMATURE GRAN PERCENT AUTO 0 % (0-1); LYMPHOCYTES ABSOLUTE AUTO 2.34 K/mm3 (0.84-5.20); LYMPHOCYTES PERCENT AUTO 37 % (21-46); MONOCYTES ABSOLUTE AUTO 0.46 K/mm3 (0.16-1.47); MONOCYTES PERCENT AUTO 7 % (4-13); Mean Corpuscular HGB 29.9 pg (26.0-34.0); Mean Corpuscular HGB Conc 33.2 g/dL (31.5-36.5); Mean Corpuscular Volume 90 fL (80-100); NEUTROPHILS ABSOLUTE AUTO 3.38 K/mm3 (1.96-9.15); NEUTROPHILS PERCENT AUTO 53 % (41-73); RDW Coefficient Variation 12.9 % (11.7-14.2); RDW Standard Deviation 42.4 fL (35.1-46.3); Red Blood Cell Count 4.22 M/mm3 (3.80-5.20); White Blood Cell Count 6.36 K/mm3 (4.00-11.30)
[2024-06-18 16:23] LABS: Albumin, Blood 3.4 g/dL (3.4-5.0); Albumin/Globulin Ratio 0.9 (0.8-1.8); Bilirubin, Total 0.9 mg/dL (0.1-1.0); Calcium, Blood 8.5 mg/dL (8.5-10.1); Creatinine, Blood 0.58 mg/dL (0.40-1.00); Globulin, Blood 3.7 g/dL (2.2-4.0); Mean Platelet Volume 9.4 fL (9.1-12.4); Platelet Count 239 K/mm3 (150-400); Potassium, Blood 3.8 mmol/L (3.5-5.5); Total Protein, Blood 7.1 g/dL (6.4-8.2)
[2024-06-18 16:37] LABS: Source, Urine Voided
[2024-06-18 16:42] LABS: Appearance, Urine Hazy (Clear); Bilirubin, Urine Neg (Neg); Blood, Urine 1+ (Neg); Color, Urine Yellow (P-Yellow); Glucose Qualitative, Urine Neg (Neg); Ketones, Urine Neg (Neg); Leukocyte Esterase, Urine 3+ (Neg); Nitrite, Urine Neg (Neg); Protein, Urine 1+ (Neg); Specific Gravity, Urine 1.025 (1.003-1.022); Urobilinogen, Urine NORM (Normal)
[2024-06-18 16:50] LABS: Mucus Mod (0-Heavy); Trichomonas Few /hpf; White Blood Cells, Urine 25-50 /hpf (0-5)
[2024-06-18 16:51] LABS: Bacteria Many /hpf; Squamous Epithelial Cells Mod /hpf (Few); Transitional Epithelial Cells Few /hpf (0-Rare)
[2024-06-18] MEDS ORDERED: CEPH500 PO (16:56)
[2024-06-18] MEDS ORDERED: Methadone HCL 10 MG TAB PO ONE ×2 (17:15→17:35)
[2024-06-18 18:00] VITALS: BP 120/86
== END 2024-06-18 18:29 | disposition home or self-care (01) ==
LOC: ER 14:47
PROVIDERS: Emergency Medicine
DX: N39.0 Urinary tract infection, site not specified (principal); Z88.0 Allergy status to penicillin; Z79.899 Other long term (current) drug therapy; Z79.2 Long term (current) use of antibiotics; I10 Essential (primary) hypertension; F17.210 Nicotine dependence, cigarettes, uncomplicated
CPT/HCPCS: 80053; 81001; 83690; 84703; 85025; 87086; 99284; A9270